=== PATIENT | female | born 1985 | race Caucasian/White ===

== ENCOUNTER → 2020-04-17 | Outpatient (CLI) | payer BC ==
[2020-04-17 16:58] LABS: BASOPHILS # (AUTO) 0.06 x10^3/uL (0-0.1); BASOPHILS % (AUTO) 1 % (0-1); EOSINOPHILS # (AUTO) 0.07 x10^3/uL (0-0.4); EOSINOPHILS % (AUTO) 1 % (1-7); LYMPHOCYTES # (AUTO) 2.12 x10^3/uL (1-3.4); LYMPHOCYTES % (AUTO) 29 % (22-44); MD NO; MEAN CORPUSCULAR HEMOGLOBIN 30.3 pg (27.0-34.8); MEAN CORPUSCULAR HGB CONC 32.5 g/dL (32.4-35.8); MEAN CORPUSCULAR VOLUME 93.1 fL (80-100); MEAN PLATELET VOLUME 9.1 fL (7.4-10.4); MONOCYTES # (AUTO) 0.68 x10^3/uL (0.2-0.8); MONOCYTES % (AUTO) 9 % (2-9); NEUTROPHILS # (AUTO) 4.46 x10^3/uL (1.8-6.8); NEUTROPHILS % (AUTO) 60 % (42-75); PLATELET COUNT 290 x10^3/uL (130-400); RED BLOOD COUNT 4.42 x10^6/uL (3.82-5.3); RED CELL DISTRIBUTION WIDTH 13.9 % (9.6-15.2)
== END | disposition home or self-care (01) ==
LOC: STAR 14:11
PROVIDERS: ATTEND Obstetrics & Gynecology
DX: Z01.818 Encounter for other preprocedural examination (principal); Z20.828 Contact with and (suspected) exposure to other viral communicable diseases; N93.9 Abnormal uterine and vaginal bleeding, unspecified
CPT/HCPCS: 36415; 84703; 85025; 87635; 93005

== ENCOUNTER 2020-04-22 11:29 | Day surgery (SDC) | payer BC ==
[~2020-04-22] VITALS: Ht 162.6 cm; Wt 82.1 kg
[~2020-04-22 11:29] MED LIST: BUPIVACAINE/PF 0.25% ONE; EPINEPHRINE 1 MG/ML, 1ML ONE; INDIGO CARMINE 0.8%, 5ML ONE; SILVER NITRATE STICK TP ONE
[2020-04-22] MEDS ORDERED: CHLORHEXIDINE 15 ML UDC ONE (11:51)
[2020-04-22] MEDS ORDERED: LACTATED RINGERS 1,000 ML IV SCH (12:00)
[2020-04-22] MEDS ORDERED: CHLORHEXIDINE 15 ML UDC MM ONE (12:30)
[2020-04-22] MEDS ORDERED: PROPOFOL 10 MG/ML, 20ML ONE (13:12)
[2020-04-22] MEDS ORDERED: FENTANYL PF 250 MCG/5ML ONE (13:12)
[2020-04-22] MEDS ORDERED: ROCURONIUM 10MG/ML,5ML ONE (13:13)
[2020-04-22] MEDS ORDERED: LIDOCAINE-MPF 2% ,5ML ONE (13:13)
[2020-04-22] MEDS ORDERED: ACETAMINOPHEN 500 MG TABLET ONE (13:14)
[2020-04-22] MEDS ORDERED: SCOPOLAMINE 1MG PATCH TD ONE (13:15)
[2020-04-22] MEDS ORDERED: OXYcodone 5 MG/5 ML ORAL.SOL UDC PO PRN (13:30)
[2020-04-22] MEDS ORDERED: ACETAMINOPHEN 500 MG TABLET PO ONE (13:30)
[2020-04-22] MEDS ORDERED: ONDANSETRON 2MG/ML, 2ML IVPush PRN (13:30)
[2020-04-22] MEDS ORDERED: PROMETHAZINE 25 MG/ML, 1ML IVPush PRN (13:30)
[2020-04-22] MEDS ORDERED: SCOPOLAMINE 1MG PATCH TD SCH (13:30)
[2020-04-22] MEDS ORDERED: DEXAMETHASONE 4 MG/ML, 1ML ONE ×3 (13:38)
[2020-04-22] MEDS ORDERED: ONDANSETRON 2MG/ML, 2ML ONE (13:38)
[2020-04-22] MEDS ORDERED: KETOROLAC 30 MG/1 ML ONE (13:39)
[2020-04-22] MEDS ORDERED: CEFAZOLIN 1,000 MG ONE ×2 (13:39)
[2020-04-22] MEDS ORDERED: FENTANYL PF 100 MCG/2ML ONE ×4 (14:19→16:42)
[2020-04-22] MEDS ORDERED: NEOSTIGMINE 1 MG/ML, 10ML ONE ×2 (15:42)
[2020-04-22] MEDS ORDERED: GLYCOPYRROLATE 0.2MG/1ML, 5ML ONE (15:42)
[2020-04-22] MEDS ORDERED: MEPERIDINE/PF 25MG/ML,1ML ONE (16:11)
[2020-04-22] MEDS ORDERED: OXYcodone 5 MG/5 ML ORAL.SOL UDC ONE (16:21)
[2020-04-22] MEDS ORDERED: MEPERIDINE/PF 25MG/0.5ML IVPush PRN (16:30)
[2020-04-22] MEDS: FENTANYL PF 100 MCG/2ML IV PRN ×3 (16:31→16:49)
== END 2020-04-22 18:20 | disposition home or self-care (01) ==
LOC: OUT 11:29
PROVIDERS: ATTEND Obstetrics & Gynecology
DX: N93.9 Abnormal uterine and vaginal bleeding, unspecified (principal); N94.6 Dysmenorrhea, unspecified; N92.0 Excessive and frequent menstruation with regular cycle; N94.10 Unspecified dyspareunia; D25.1 Intramural leiomyoma of uterus; D25.2 Subserosal leiomyoma of uterus; N80.1 Endometriosis of ovary; N80.5 Endometriosis of intestine; N80.0 Endometriosis of uterus; N80.2 Endometriosis of fallopian tube; N83.11 Corpus luteum cyst of right ovary; N73.6 Female pelvic peritoneal adhesions (postinfective); Z98.890 Other specified postprocedural states
CPT/HCPCS: 58552; 81025; 88307; J0171; J0690; J1100; J1885; J2175; J2405; J2704; J2710; J3010; J3490; J7120